=== PATIENT | male | born 1990 | race Caucasian/White ===

== ENCOUNTER 2025-01-13 08:12 | Outpatient (CLI) | payer MEDICAID ==
[2025-01-13] MEDS ORDERED: ALBUTEROL SULF 2.5 MG/0.5ML(0.5%) NEB SOLN ONE (08:31)
== END 2025-01-13 17:00 | disposition home or self-care (01) ==
LOC: RT 08:12
PROVIDERS: ATTEND Internal Medicine Pulmonary Disease
DX: J45.909 Unspecified asthma, uncomplicated (principal); R06.02 Shortness of breath
CPT/HCPCS: 94060; 94729